=== PATIENT | male | born 1985 | race Caucasian/White ===

== ENCOUNTER → 2024-01-08 | Day surgery (SDC) | payer BC ==
[~2024-01-08] MED LIST: LIDOCAINE HCL 2% LOCAL INJ 5 ML SDV VIAL INJ ONE; MIDAZOLAM HCL 2 MG/2 ML VIAL ONE; PROPOFOL IV EMULSION 10 MG/ML 20 ML VIAL ONE
[2024-01-08] MEDS: LACTATED RINGER'S 1,000 ML ONE (07:41)
[2024-01-08 09:25] VITALS: BP 123/66; PULSE 62; RESP 16; O2SAT 100
== END | disposition home or self-care (01) ==
LOC: OR 07:31
PROVIDERS: ATTEND Internal Medicine Gastroenterology
DX: K62.5 Hemorrhage of anus and rectum (principal); K59.00 Constipation, unspecified; K64.8 Other hemorrhoids; K62.89 Other specified diseases of anus and rectum; R03.0 Elevated blood-pressure reading, without diagnosis of hypertension; Z72.0 Tobacco use
CPT/HCPCS: 45378; J2001; J2250; J2704; J7121